=== PATIENT | male | born 1980 | race Caucasian/White ===

== ENCOUNTER 2022-11-01 10:23 | Emergency (ER) | payer MEDICAID ==
[~2022-11-01] VITALS: Ht 185.4 cm; Wt 70.0 kg
[2022-11-01 10:26] VITALS: BP 107/75
== END 2022-11-01 11:11 | disposition home or self-care (01) ==
LOC: ER 10:24
DX: F15.10 Other stimulant abuse, uncomplicated (principal); Z88.8 Allergy status to other drugs, medicaments and biological substances
CPT/HCPCS: 99281